=== PATIENT | male | born 1985 | race Caucasian/White ===

== ENCOUNTER 2016-05-30 18:38 | Emergency (ER) | payer MEDICAID ==
[~2016-05-30] VITALS: Ht 165.1 cm; Wt 120.7 kg
[2016-05-30 18:43] VITALS: BP 142/92
--- NOTE | 2016-05-30 19:02 | NUR ---
PATIENT BIB FAMILY FOR ACUTE ONSET OF RIGHT FACIAL DROOP LAST NIGHT, AWAKE AND ALERT, [employer] [facility] EQUAL, NO DIFFICULTY SWALLOWING, SPEECH NORMAL TONGUE MIDLINE. TO BED 1 PLACED ON MONITOR MD AWARE.
--- NOTE | 2016-05-30 19:17 | NUR ---
REPORT GIVEN TO ELENITA LOPEZ AT THIS TIME.
--- NOTE | 2016-05-30 19:46 | NUR ---
Dr. Egan evaluating patient at bedside.
[2016-05-30] MEDS ORDERED: ACETAMINOPHEN EXTRA STRENGTH 500 MG TAB PO ONE (19:55)
--- NOTE | 2016-05-30 20:24 | NUR ---
TAKEN FOR CT SCAN
--- NOTE | 2016-05-30 20:26 | NUR ---
CAME BACK FRO CT SCAN
[2016-05-30 21:30] VITALS: BP 127/73
--- NOTE | 2016-05-30 21:30 | NUR ---
Patient discharged with v/s stable. Written and verbal after care instructions given and explained. Patient alert, oriented and verbalized understanding of instructions. Ambulatory with steady gait. All questions addressed prior to discharge. ID band removed. Patient advised to follow up with PMD. Rx of Prednisone and Valacyclovir given. Patient educated on indication of medication including possible reaction and side effects. Opportunity to ask questions provided and answered.
== END 2016-05-30 21:30 | disposition home or self-care (01) ==
LOC: MED 18:38
DX: G51.0 Bell's palsy (principal); R74.8 Abnormal levels of other serum enzymes; J45.909 Unspecified asthma, uncomplicated